=== PATIENT | female | born 1955 | race Caucasian/White ===

== ENCOUNTER 2017-07-28 05:16 | Day surgery (SDC) | payer BC ==
[~2017-07-28] VITALS: Ht 162.6 cm; Wt 91.2 kg
--- NOTE | ~2017-07-28 | O ---
[facility] [place] [address] OPERATIVE REPORT Name: JASMEET CHANDLER Room [id number] Admission: 07/28/17 Attend Phys: Duncan Dc MD Discharge: 07/28/17 Date of : 57 Report #: [id number] THIS REPORT FOR: //name// CC: Jeancarlos Dc DATE OF SERVICE: 07/28/2017 PREOPERATIVE DIAGNOSES: 1. Left shoulder recurrent rotator cuff tendon tear. 2. Left hip trochanteric bursitis. POSTOPERATIVE DIAGNOSES: 1. Left shoulder recurrent rotator cuff tendon tear. 2. Left hip trochanteric bursitis. PROCEDURES: Left shoulder arthroscopy followed by a mini open rotator cuff revision repair. Left hip trochanteric bursa injection. SURGEON: Dr. Duncan Dc. INVERTED BLOCK OPERATOR: Jennifer Hyde. ANESTHETIC: General. INDICATIONS: See hospital H and P. DESCRIPTION OF PROCEDURE: After adequate general anesthesia had been obtained, the patient was placed in the beach chair position. Left shoulder and upper extremity was prepped and draped in the usual meticulous sterile fashion. We made a posterior portal by first infiltrating with 0.5% Marcaine with epinephrine, then making a stab incision with a 15-blade. Scope sheath was introduced atraumatically into the glenohumeral joint. Anterosuperior portal was established under direct vision. Complete diagnostic arthroscopy was performed. The patient was noted to have normal-appearing glenohumeral joint. Biceps tendon was viewed in its entirety, the intra-articular portion and no abnormality seen. The labrum was intact, glenohumeral ligaments intact, subscapularis intact. The supraspinatus was noted to have a sort of V-shaped defect in the area of her previous repair. At this point, I elected to do a mini open repair. Her previously made incision from her repair was reopened, subq was divided sharply, deltoid fascia was split longitudinally. Bursa was resected. The previously placed suture was removed. The tear was debrided of any unhealthy-appearing tendon. I took a curette and created a bleeding bone surface on the greater tuberosity for vascularity. The [address] [address] OPERATIVE REPORT Name: JASMEET CHANDLER Room #: DEP [facility] [place] [facility] M.R.#: [id number] Admission: 07/28/17 Attend Phys: Duncan Dc MD Discharge: 07/28/17 Date of : 57 Report #: [id number] tendon tissue actually was reasonably good quality and so I did not believe augmentation was required. Bio-Corkscrew anchor was then placed in the more medial portion of the footprint. We then placed the 2 sutures through the tendon and tied them securely with good reapproximation of the tendon down to the bone. The wound was irrigated copiously. Deltoid split was closed with running 2-0 Monocryl, subq closed with 2-0 Monocryl, skin closed with running subcuticular 2-0 Prolene. Portals closed with 4-0 nylon. Sterile compressive dressing was complied. The patient did discuss with us preoperatively about having her left trochanteric bursa injected. She had had this done previously, which gave her good relief and she is having a recurrence of her symptoms, I felt that was reasonable. The left hip was then prepped with ChloraPrep and then we injected the left hip trochanteric bursa with a combination of 2 mL of 1% lidocaine and 1 mL of betamethasone. <ELECTRONICALLY SIGNED> By: Duncan Dc MD 07/28/17 [id number] Duncan Dc MD /nt
[~2017-07-28 05:16] MED LIST: BRINTELLIX5 MG PO; MOBIC15 MG PO; RESTASIS1 EACH OPHTHALMIC; TOPROL XL25 MG PO
[2017-07-28 07:15] VITALS: BP 121/75
[2017-07-28 09:51] VITALS: BP 121/75
== END 2017-07-28 10:30 | disposition home or self-care (01) ==
LOC: OR 05:16 → TBA 05:16 → EDSTATUS 06:36 → PRE 06:37 → OR 10:30 → EDSTATUS 14:33 → OR 14:43 → PRE 15:29 → OR 16:36
DX: M75.102 Unspecified rotator cuff tear or rupture of left shoulder, not specified as traumatic (principal); M70.62 Trochanteric bursitis, left hip; F43.21 Adjustment disorder with depressed mood; F41.8 Other specified anxiety disorders; Z98.890 Other specified postprocedural states; Z79.899 Other long term (current) drug therapy; Z88.6 Allergy status to analgesic agent
CPT/HCPCS: 50010; 50101; 50172; 50386; 50417; 50733; 51038; 54170; 55430; 56525; 56526; 56530; 56617; 62110; 62900; 70005

== ENCOUNTER → 2019-10-10 | Outpatient (CLI) | payer BC | LOC: SJCVC 11:16 → SJCVCIMAG 11:16 | DX: M79.89 Other specified soft tissue disorders (principal) ==